=== PATIENT | male | born 1960 | race Caucasian/White ===

== ENCOUNTER → 2019-05-30 | Outpatient (CLI) | payer OTHER ==
--- NOTE | 2019-05-31 08:48 | RADIOLOGY REPORT (SQ) ---
EXAM DESCRIPTION: PET CT SKULL/THIGH COMPLETED DATE/TIME: 05/30/2019 9:59 am REASON FOR STUDY: ENLARGED PARATRACHEAL LYMPH NODE (R59.9) R93.89 ABNORMAL FINDINGS ON DX IMAGING O F OTH BODY STRUCTURE R59.9 ENLARGED LYMPH NODES, UNSPECIFIED history of chronic kidney disease, stag e 5 on the transplant list. Av fistula 4 dialysis. GERD, peripheral vascular disease status post il iac stent. Iron deficiency anemia. COMPARISON: None. RADIONUCLIDE AND DOSE: 9.96 mCi mCi F18 FDG The route of agent administration: Intravenous FASTING BLOOD SUGAR: 103 mg/dl CONTRAST TYPE AND DOSE: No CT contrast given. TECHNIQUE: Blood glucose level was verified. Above dose of FDG was injected intravenously. 2-D seg mented attenuation correction images were obtained from the base of the skull to the midthighs. Nonc ontrast CT images were obtained for attenuation correction and fusion with emission images. CT image s were performed without oral or intravenous contrast and are not sensitive for parenchymal lesions. A series of overlapping emission PET images were obtained. Images reviewed and manipulated at [facility] work station by the radiologist. Images stored on PACS. LIMITATIONS: None. FINDINGS: HEAD AND NECK: No areas of abnormal metabolic activity in the soft tissues of the head and neck. CHEST: No areas of abnormal metabolic activity in the chest. ABDOMEN AND PELVIS: No areas of abnormal metabolic activity in the abdomen or pelvis. Expected physi ologic activity is present in the genitourinary system and bowel. PROXIMAL LOWER EXTREMITIES: No areas of abnormal metabolic activity in the soft tissues of the lower extremities. BONES: No abnormal metabolic activity in the visualized skeleton. ADDITIONAL CT FINDINGS: An enlarged right peritracheal lymph node measures 1.8 x 1.8 cm, with no sign ificant metabolic activity. No other mediastinal or hilar adenopathy. Bilateral renal cortical atro phy. No renal or ureteral calculi. Extensive atherosclerosis in the infrarenal abdominal aorta and common iliac branches. OTHER: No other significant findings. IMPRESSION: Enlarged right paratracheal lymph node demonstrates no metabolic activity, consistent wi th a benign reactive node. There is no abnormal FDG uptake in the chest, abdomen or pelvis. TECHNICAL DOCUMENTATION: JOB ID: [id number] [employer]- All Rights Reserved Reading location - IP/workstation name: [id number]
== END ==
LOC: RAD 08:42
PROVIDERS: ATTEND Surgery
DX: R59.9 Enlarged lymph nodes, unspecified (principal); I70.0 Atherosclerosis of aorta; D50.9 Iron deficiency anemia, unspecified; R93.89 Abnormal findings on diagnostic imaging of other specified body structures
CPT/HCPCS: 78815; A9552